=== PATIENT | female | born 2005 | race Hispanic/Latino ===

== ENCOUNTER 2025-04-27 08:59 | Emergency (ER) | payer BC ==
[~2025-04-27] VITALS: Ht 152.4 cm; Wt 54.4 kg
[2025-04-27 09:19] VITALS: TEMP 99.8
[2025-04-27] MEDS: SODIUM CHLORIDE 0.9% 1000ML 1,000 ML IV STA (10:06)
[2025-04-27] MEDS: ONDANSETRON HCL INJ 2MG/ML 2ML 2 MG/ML VIAL IV STA (10:06)
[2025-04-27] MEDS: KETOROLAC TROMETHAMINE 30 MG/ML VIAL IV STA (10:06)
[2025-04-27 10:22] LABS: BASOPHILS % 0.2 % (0.0-1.0); EOSINOPHILS % 0.6 % (0.0-6.0); LYMPHOCYTES % 9.2 % (18.0-39.1); MONOCYTES % 6.2 % (4.4-11.3); NEUTROPHILS % 83.4 % (38.7-80.0); RED CELL DISTRIBUTION WIDTH 12.5 % (11.7-14.4)
[2025-04-27 10:44] LABS: INR 1.01
[2025-04-27 10:51] LABS: EST GLOMERULAR FILTRATION RATE 113 ML/MIN (>=60)
[2025-04-27] MEDS ORDERED: IOPAMIDOL 370 MG/ML 100 ML INFUS..BTL INJ ONE (10:55)
[2025-04-27 13:32] LABS: LEUKOCYTE ESTERASE ,URINE NEGATIVE (NEGATIVE); PROTEIN,URINE DIPSTICK NEGATIVE (NEGATIVE); URINE UROBILINOGEN 0.2 mg/dL (0.2 - 1)
[2025-04-27] MEDS ORDERED: DICYCLOMINE HCL20 MG PO (13:38)
[2025-04-27] MEDS ORDERED: ONDANSETRON ODT4 MG PO (13:38)
[2025-04-27 14:45] VITALS: PULSE 68; RESP 18; O2SAT 100
== END 2025-04-27 14:47 | disposition home or self-care (01) ==
LOC: ER 09:24
DX: R11.2 Nausea with vomiting, unspecified (principal); K29.70 Gastritis, unspecified, without bleeding; R10.11 Right upper quadrant pain
CPT/HCPCS: 36415; 74177; 76705; 80053; 81001; 83690; 84702; 85025; 85610; 85730; 99284; J1885; J2405; J2470; J7030; Q9967